=== PATIENT | male | born 1985 | race Caucasian/White ===

== ENCOUNTER 2016-11-17 19:56 | Emergency (ER) | payer BC ==
[2016-11-17] MEDS: AMOXICILLIN 500 MG TABLET PO ONE ×2 (20:20→20:42)
--- NOTE | 2016-11-17 20:21 | Emergency Department Record ---
History of Present Illness - General Chief complaint: ENT Stated complaint: SORE THROAT AND EARS,FEVER Time Seen by Provider: 11/17/16 20:14 Source: Patient, Family Mode of Arrival: Ambulatory - History of Present Illness Initial comments: 30 yo male presents with cough congestion and sore throat since Friday. He has bilateral ear pain as well. No NVD. No voice changes or difficulty swallowing. History of tonsillectomy as child. MD complaint: Ear pain, Sore throat, Other (cough) Onset/Timin -: Days(s) Location: R ear, L ear, Throat Severity scale (1-10): 6 Quality: Aching Consistency: Constant Improves with: None Worsens with: None Context- Ear: Recent illness Associated Symptoms: Cough - Related Data Previous Rx's Medication Instructions Recorded Amoxicillin [Amoxil] 500 mg PO TID #30 tab 11/17/16 Allergies Allergy/AdvReac Type Severity Reaction Status Date / Time metoclopramide HCl AdvReac ALTERED Verified 11/17/16 20:00 [From [facility]] MENTAL STATUS Travel Screening - Travel/Exposure Within Last 30 Days Have you traveled within the last 30 days?: Yes Location Detail:: and [place] - Travel/Exposure Within Last Year Have you traveled outside the [place] in the last year?: No - Additonal Travel Details Have you been exposed to anyone with a communicable illness?: No - Travel Symptoms Symptom Screening: None Review of Systems Constitutional: Denies: Chills, Fever, Malaise, Night sweats, Weakness Eyes: Denies: Eye discharge, Eye pain, Photophobia, Vision change ENT: Reports: Congestion, Ear pain, Throat pain Respiratory: Reports: Cough. Denies: Dyspnea, Hemoptysis, Stridor, Wheezes Cardiovascular: Denies: Chest pain, Palpitations, Syncope Endocrine: Denies: Fatigue Gastrointestinal: Denies: Abdominal pain, Diarrhea, Nausea, Vomiting Genitourinary: Denies: Dysuria, Frequency, Hematuria Musculoskeletal: Denies: Arthralgia, Back pain, Myalgia Skin: Denies: Bruising, Change in color, Rash Neurological: Denies: Confusion, Headache, Tingling, Tremors, Vertigo, Weakness Psychiatric: Denies: Anxiety Hematological/Lymphatic: Denies: Anemia, Blood Clots, Easy bleeding, Easy bruising, Swollen glands Past Medical History - SOCIAL HISTORY Smoking Status: Never smoker Alcohol Use: Heavy Alcohol Use Comment: couple beers nightly Drug Use: None - RESPIRATORY Hx Respiratory Disorders: Yes Hx Pneumonia: Yes - CARDIOVASCULAR Hx Cardio Disorders: No - NEURO Hx Neuro Disorders: No - GI Hx GI Disorders: No - Hx Genitourinary Disorders: No - ENDOCRINE Hx Endocrine Disorders: No - MUSCULOSKELETAL Hx Musculoskeletal Disorders: No - PSYCH Hx Psych Problems: No - HEMATOLOGY/ONCOLOGY Hx Hematology/Oncology Disorders: No Family Medical History Any Significant Family History?: No Physical Exam - General General Appearance: Alert, Oriented x3, Cooperative, No acute distress Limitations: No limitations - Head Head exam: Normal inspection - Eye Eye exam: Normal appearance, PERRL. negative: Conjunctival injection, Scleral icterus - ENT ENT exam: Mucous membranes moist, TM's normal bilaterally. negative: Normal exam, Normal orophraynx Ear exam: Normal external inspection. negative: External canal tenderness Nasal Exam: Discharge (clear). negative: Dried blood Mouth exam: Normal external inspection, Tongue normal Teeth exam: Normal inspection. negative: Dental caries Throat exam: Tonsillar erythema, Tonsillar exudate. negative: Tonsillomegaly, R peritonsillar mass, L peritonsillar mass - Neck Neck exam: Lymphadenopathy. negative: Meningismus, Tenderness, Thyromegaly - Respiratory Respiratory exam: Normal lung sounds bilaterally. negative: Accessory muscle use, Chest wall tenderness, Decreased breath sounds, Prolonged expiratory, Respiratory distress, Rhonchi, Stridor, Wheezes - Cardiovascular Cardiovascular Exam: Regular rate, Normal rhythm, Normal heart sounds - GI/Abdominal GI/Abdominal exam: Soft, Normal bowel sounds. negative: Tenderness - Rectal Rectal exam: Deferred - exam: Deferred - Extremities Extremities exam: Normal inspection, Full ROM, Normal capillary refill. negative: Tenderness - Back Back exam: Reports: Normal inspection, Full ROM. Denies: Muscle spasm, Rash noted, Tenderness - Neurological Neurological exam: Alert, Normal gait, Oriented X3 - Psychiatric Psychiatric exam: Normal affect, Normal mood - Skin Skin exam: Dry, Intact, Normal color, Warm Course Vital Signs 11/17/16 20:00 Temperature 99.5 F Pulse Rate 108 H Respiratory 20 Rate Blood Pressure 142/97 Pulse Ox 98 - Reevaluation(s) Reevaluation #1: The patient was seen and examined Amoxicillin provided in ED Strep screen sent for erythema with small amount of exudate 11/17/16 20:19 Reevaluation #2: Strep is positive 11/17/16 20:31 Disposition Disposition: Discharge Clinical Impression: Strep throat Sinusitis Qualifiers: Sinusitis location: frontal Chronicity: acute Recurrence: not specified as recurrent Qualified Code(s): J01.10 - Acute frontal sinusitis, unspecified Pharyngitis Qualifiers: Pharyngitis/tonsillitis etiology: unspecified etiology Qualified Code(s): J02.9 - Acute pharyngitis, unspecified Disposition: Home, Self-Care Condition: (1) Good Instructions: Strep Throat (ED) Additional Instructions: Return if worse, vomiting, fever, swelling or concerns Stay well hydrated Prescriptions: Amoxicillin [Amoxil] 500 mg PO TID #30 tab Forms: Patient Portal Access Time of Disposition: 20:21
== END 2016-11-17 20:46 | disposition home or self-care (01) ==
LOC: ER 19:56
DX: J02.0 Streptococcal pharyngitis (principal); J01.10 Acute frontal sinusitis, unspecified
CPT/HCPCS: 87880; 99282

== ENCOUNTER 2018-04-24 15:10 | Emergency (ER) | payer BC ==
--- NOTE | 2018-04-24 15:34 | Emergency Department Record ---
History of Present Illness - General Chief Complaint: Chest Pain Stated Complaint: CHEST DISCOMFOR ALL WEEK Time Seen by Provider: 04/24/18 15:16 Source: Patient Mode of Arrival: Ambulatory Limitations: No limitations - History of Present Illness Initial Comments: 32 yo male presents with a few episodes of brief chest discomfort over the last 10 days. The episodes seem to be noted in the upper chest. The occur somewhat randomly. Not exertion related or emotion related. He does not have any pain currently or today. He noted it seemed more noticeable with lifting but not to palpation. No shortness of breath. No diaphoresis. He denies palpitations. He uses minimal amounts of caffeine. He is not a smoker. No formal diagnosis of HTN, DM, elevated cholesterol. No family history of CAD or SCD in his immediate family. No history of any congenital diseases. He had labs for life insurance that he reports were in the highest rating area but he does not know specifics. No recent illness or injury. MD Complaint: Chest pain -: Days(s) (10) Onset: Other (Occurs randomly) Pain Radiation: None Severity: Mild Quality: Other (pressure) Consistency: Intermittent Improves With: Nothing Worsens With: Other (lifting) Anginal Symptoms: Other (None) Treatments Prior to Arrival: None - Related Data Home Medications Medication Instructions Recorded Confirmed Last Taken No Home Med [NO HOME MEDS] 04/24/18 04/24/18 Unknown Allergies Allergy/AdvReac Type Severity Reaction Status Date / Time metoclopramide HCl AdvReac ALTERED Verified 11/17/16 20:00 [From [facility]] MENTAL STATUS Review of Systems Constitutional: Denies: Chills, Fever, Malaise, Weakness Eyes: Denies: Eye discharge ENT: Denies: Congestion, Throat pain Respiratory: Denies: Cough, Dyspnea, Hemoptysis, Stridor, Wheezes Cardiovascular: Reports: Chest pain. Denies: Dyspnea on exertion, Edema, Palpitations, Syncope Endocrine: Denies: Fatigue, Polydipsia, Polyuria Gastrointestinal: Denies: Abdominal pain, Diarrhea, Nausea, Vomiting Genitourinary: Denies: Dysuria, Frequency, Hematuria Musculoskeletal: Denies: Arthralgia, Back pain, Joint swelling, Myalgia Skin: Denies: Bruising, Change in color, Rash Neurological: Denies: Headache, Numbness, Tremors, Vertigo, Weakness Psychiatric: Denies: Anxiety Hematological/Lymphatic: Denies: Easy bleeding, Easy bruising Past Medical History - SOCIAL HISTORY Smoking Status: Never smoker Alcohol Use Comment: couple beers nightly Drug Use: None - RESPIRATORY Hx Respiratory Disorders: Yes Hx Pneumonia: Yes - CARDIOVASCULAR Hx Cardio Disorders: No - NEURO Hx Neuro Disorders: No - GI Hx GI Disorders: No - Hx Genitourinary Disorders: No - ENDOCRINE Hx Endocrine Disorders: No - MUSCULOSKELETAL Hx Musculoskeletal Disorders: No - PSYCH Hx Psych Problems: No - HEMATOLOGY/ONCOLOGY Hx Hematology/Oncology Disorders: No Physical Exam - General General Appearance: Alert, Oriented x3, Cooperative, No acute distress Limitations: No limitations - Head Head exam: Normal inspection - Eye Eye exam: Normal appearance. negative: Conjunctival injection, Scleral icterus - ENT ENT exam: Normal exam Ear exam: Normal external inspection Nasal Exam: Normal inspection Mouth exam: Normal external inspection - Neck Neck exam: Normal inspection - Respiratory Respiratory exam: Normal lung sounds bilaterally. negative: Accessory muscle use, Chest wall tenderness, Decreased breath sounds, Prolonged expiratory, Rales , Respiratory distress, Rhonchi, Stridor, Wheezes - Cardiovascular Cardiovascular Exam: Regular rate, Normal rhythm, Normal heart sounds Peripheral Pulses: 2+: Radial (R), Radial (L) - GI/Abdominal GI/Abdominal exam: Soft. negative: Tenderness - Rectal Rectal exam: Deferred - exam: Deferred - Extremities Extremities exam: Normal inspection. negative: Joint swelling, Pedal edema, Tenderness - Back Back exam: Denies: CVA tenderness (R), CVA tenderness (L) - Neurological Neurological exam: Alert, Normal gait, Oriented X3 - Psychiatric Psychiatric exam: Normal affect, Normal mood - Skin Skin exam: Dry, Intact, Normal color, Warm Course - Reevaluation(s) Reevaluation #1: EKG NSR, rate is 80, intervals AL 115 otherwise normal, [place] normal, ST no acute changes. No old for comparison. 04/24/18 15:24 04/24/18 15:41 HEART SCORE is 0 PERC Negative 04/24/18 16:19 The labs are normal With a HEART SCORE of 0 DC with follow up recommendations The patient has symptoms not typical for ACS,PE He does not have any traditional risk factors DC with referrals to PCP and outpatient cardiology Medical Decision Making - Lab Data Result diagrams: 04/24/18 15:34 04/24/18 15:40 Disposition Disposition: Discharge Clinical Impression: Chest pain Disposition: Home, Self-Care Condition: (1) Good Instructions: Chest Pain (ED) Referrals: CHELITA MCKEON [MEDICAL DOCTOR] - JESSE LYNCH M.D. [MEDICAL DOCTOR] - [facility] [Provider Group] Forms: Patient Portal Access Time of Disposition: 16:21 Quality - Quality Measures Quality Measures: N/A - Blood Pressure Screening Does Patient Have Any of the Following: No Blood Pressure Classification: Pre-Hypertensive BP Reading Systolic Measurement: 145 Diastolic Measurement: 88 Screening for High Blood Pressure: < Pre-Hypertensive BP, F/U Documented > [ G8950] Pre-Hypertensive Follow-up Interventions: Referral to alternative/primary care provider.
[2018-04-24 15:52] LABS: BASO % 0.3 % (0-6); EOS % 1.2 % (0-6); GRAN % 59.6 % (47-80); HEMATOCRIT 40.8 % (42.0-52.0); HEMOGLOBIN 14.1 gm/dl (14.0-18.0); LYMPH % 32.1 % (16-45); MEAN CELL VOLUME 84.8 fl (81-97); MEAN CORPUSCULAR HEMOGLOBIN 29.3 pg (27-33); MEAN CORPUSCULAR HGB CONC 34.6 g/dl (32-36); MEAN PLATELET VOLUME 10.4 fl (7.4-10.4); MONO % 6.8 % (0-9); PLATELET COUNT 333 K/uL (130-400); RED BLOOD COUNT 4.81 M/uL (4.40-5.70); RED CELL DISTRIBUTION WIDTH 13.1 % (11.5-14.5)
[2018-04-24 16:02] LABS: BLOOD UREA NITROGEN 15 mg/dL (6-20); CREATININE 0.9 mg/dL (0.7-1.2); EST GLOMERULAR FILTRATION RATE > 60 mL/min
[2018-04-24 16:05] LABS: GLUCOSE,RANDOM 109 mg/dL (74-109)
--- NOTE | 2018-04-25 16:38 | RADIOLOGY REPORT ---
DATE: 04/24/2018 at 4:13 p.m. EXAM: TWO-VIEW, CHEST. HISTORY: Chest pain for nine days. TECHNIQUE: PA and lateral views. COMPARISON: Two-view, chest, 11/05/2016. FINDINGS: Heart size is within normal limits. No acute infiltrate identified. No pleural effusion or pneumothorax evident. IMPRESSION: THE CHEST APPEARS NEGATIVE. JOB NUMBER: [id number] MTDD
== END 2018-04-24 16:32 | disposition home or self-care (01) ==
LOC: ER 15:10
DX: R07.89 Other chest pain (principal)
CPT/HCPCS: 71046; 80048; 84484; 85025; 93005; 93010; 99282; 99283

== ENCOUNTER 2018-08-12 19:39 | Emergency (ER) | payer BC ==
--- NOTE | 2018-08-12 19:56 | Emergency Department Record ---
History of Present Illness - General Chief complaint: Male Urogenital Problem Stated complaint: GROIN PAIN Time Seen by Provider: 08/12/18 19:50 Source: Patient, Family Mode of Arrival: Ambulatory Limitations: No limitations - History of Present Illness Initial comments: 32 yo male presents with a pain that occurred twice today. The pain is currently gone. The pain occurred first this morning. The pain was sharp on the right flank, to the right groin and felt it in the right testicle. It lasted about 3 hours. The pain resolved. I return this afternoon but not as long. The pain has completely resolved. No fever, chills, hematuria, swelling , mass, rash. No history or urologic disease in the past. History of gall bladder removal. MD Complaint: Other Onset/Timin -: Days(s) (1) Location: Right flank Radiation: Suprapubic, Other Severity: Moderate Severity scale (1-10): 4 Quality: Sharp Consistency: Intermittent, Now resolved Improves with: Rest Other Reports: Denies other symptoms - Related Data Sexually active: Yes Allergies Allergy/AdvReac Type Severity Reaction Status Date / Time metoclopramide HCl AdvReac ALTERED Verified 08/12/18 19:54 [From [facility]] MENTAL STATUS Travel Screening - Travel/Exposure Within Last 30 Days Have you traveled within the last 30 days?: No - Travel Symptoms Symptom Screening: None Review of Systems Constitutional: Denies: Chills, Fever Eyes: Denies: Vision change ENT: Denies: Congestion, Ear pain, Throat pain Respiratory: Denies: Cough Cardiovascular: Denies: Chest pain Endocrine: Denies: Fatigue Gastrointestinal: Denies: Abdominal pain, Diarrhea, Nausea, Vomiting Genitourinary: Reports: Testicular pain (resolved). Denies: Discharge, Dysuria , Frequency, Hematuria, Incontinence, Testicular mass, Urgency Musculoskeletal: Reports: Back pain (right flank pain) Skin: Denies: Bruising, Change in color, Rash Neurological: Denies: Headache Psychiatric: Denies: Anxiety Hematological/Lymphatic: Denies: Easy bleeding, Easy bruising Past Medical History - SOCIAL HISTORY Smoking Status: Never smoker Alcohol Use Comment: couple beers nightly Drug Use: None - RESPIRATORY Hx Respiratory Disorders: Yes Hx Pneumonia: Yes - CARDIOVASCULAR Hx Cardio Disorders: No - NEURO Hx Neuro Disorders: No - GI Hx GI Disorders: No - Hx Genitourinary Disorders: No - ENDOCRINE Hx Endocrine Disorders: No - MUSCULOSKELETAL Hx Musculoskeletal Disorders: No - PSYCH Hx Psych Problems: No - HEMATOLOGY/ONCOLOGY Hx Hematology/Oncology Disorders: No Physical Exam - General General Appearance: Alert, Oriented x3, Cooperative, No acute distress Limitations: No limitations - Head Head exam: Atraumatic, Normal inspection - Eye Eye exam: Normal appearance, Conjunctival injection - ENT ENT exam: Normal exam Ear exam: Normal external inspection Nasal Exam: Normal inspection Mouth exam: Normal external inspection - Neck Neck exam: Normal inspection - Respiratory Respiratory exam: Normal lung sounds bilaterally. negative: Respiratory distress - Cardiovascular Cardiovascular Exam: Regular rate, Normal rhythm, Normal heart sounds - GI/Abdominal GI/Abdominal exam: Soft, Other (No tenderness of the inguinal area laying or standing, no hernia laying or standing). negative: Distended, Guarding, Hernia , Rebound, Rigid, Tenderness - Rectal Rectal exam: Deferred - exam: Circumcision, Normal inspection, Other (Normal cremasteric reflex bilateral, no testicle swelling bilateral, no testicle or epididymal tenderness or swell. ). negative: Scrotal swelling, Testicular tenderness, Urethral discharge - Extremities Extremities exam: Normal inspection - Back Back exam: Denies: CVA tenderness (R), CVA tenderness (L), Paraspinal tenderness , Tenderness - Neurological Neurological exam: Alert, Oriented X3 - Psychiatric Psychiatric exam: Normal affect, Normal mood. negative: Agitated, Anxious - Skin Skin exam: Dry, Intact, Normal color, Warm Course Vital Signs 08/12/18 19:44 Temperature 98.6 F Pulse Rate [ 90 Pulse Ox Probe] Respiratory 20 Rate Blood Pressure 133/93 [Left Arm] Pulse Ox 98 - Reevaluation(s) Reevaluation #1: The patient is completely asymptomatic at this time. The abdomen and testicle both have a normal examination With flank, groin pain radiating to the testicle (all resolved) I recommended UA initially. No signs of infection, torsion, mass, hernia. We did discuss if any pain in the testicle returns he would need to be seen in a hospital with 24/7 US that is not available at [facility] currently We discussed reviewing the UA initially and re-evaluating at that time 08/12/18 19:56 08/12/18 20:04 Blood noted in the urine. I offered CT for stone to further investigate his pain. He requests the CT 08/12/18 20:[address] 2-3 mm right sided non obstructing stones The patient remains asymptomatic We discussed home care, when to be seen if pain returns, and going to a larger ED in the night if the testicle becomes painful. Disposition Disposition: Discharge Clinical Impression: Acute flank pain, Renal colic on right side Disposition: Home, Self-Care Condition: (1) Good Instructions: Renal Colic (ED) Additional Instructions: Return to ED if your symptoms worsen or if you have any new concerns. Review the final Emergency Record and test results with your doctor on follow up Call the number provided for a new family doctor at [facility]. Referrals: CHELITA MCKEON [MEDICAL DOCTOR] - Forms: Patient Portal Access Time of Disposition: 20:40 Quality - Quality Measures Quality Measures: N/A - Blood Pressure Screening Does Patient Have Any of the Following: No Blood Pressure Classification: Hypertensive Reading Systolic Measurement: 133 Diastolic Measurement: 93 Screening for High Blood Pressure: < Pre-Hypertensive BP, F/U Documented > [ G8950] Pre-Hypertensive Follow-up Interventions: Referral to alternative/primary care provider.
[2018-08-12 20:00] LABS: URINE APPEARANCE CLEAR; URINE BILIRUBIN NEGATIVE (NEGATIVE); URINE BLOOD MODERATE (NEGATIVE); URINE COLOR YELLOW; URINE GLUCOSE (UA) NEGATIVE (NEGATIVE); URINE KETONE NEGATIVE (NEGATIVE); URINE LEUKOCYTE ESTERASE TRACE (NEGATIVE); URINE NITRITE NEGATIVE (NEGATIVE); URINE PROTEIN NEGATIVE (NEGATIVE); URINE UROBILINOGEN 0.2 E.U./dL (0.20 - 1.00)
[2018-08-12 20:08] LABS: URINE EPITHELIAL CELLS 0 - 2 (FEW); URINE WBC 0 - 2 (0-2/hpf)
== END 2018-08-12 20:48 | disposition home or self-care (01) ==
LOC: ER 19:39
DX: N20.0 Calculus of kidney (principal)
CPT/HCPCS: 74176; 81001; 99283

== ENCOUNTER 2019-03-31 20:48 | Emergency (ER) | payer BC ==
[2019-03-31 21:42] LABS: URINE APPEARANCE CLEAR; URINE BILIRUBIN NEGATIVE (NEGATIVE); URINE BLOOD NEGATIVE (NEGATIVE); URINE COLOR YELLOW; URINE GLUCOSE (UA) NEGATIVE (NEGATIVE); URINE KETONE NEGATIVE (NEGATIVE); URINE LEUKOCYTE ESTERASE NEGATIVE (NEGATIVE); URINE NITRITE NEGATIVE (NEGATIVE); URINE PROTEIN NEGATIVE (NEGATIVE); URINE UROBILINOGEN 0.2 E.U./dL (0.20 - 1.00)
--- NOTE | 2019-03-31 22:16 | Emergency Department Record ---
History of Present Illness - General Chief complaint: Male Urogenital Problem Stated complaint: CONSTANT FELLING HAVING TO GO TO BATHROOM Time Seen by Provider: 03/31/19 22:03 Source: Patient Mode of Arrival: Ambulatory Limitations: No limitations - History of Present Illness Initial comments: 33 yo male presents with a feeling of having to urinate frequently. No blood, no pus, fever, no abdominal pain. No back pain. He has had renal stones in the past. He is circumcised. No bowel changes. He has a history of renal stones. No current signs of renal stones. NO irritation or sores of the penis. MD Complaint: Dysuria Onset/Timin -: Week(s) Location: Penis Radiation: None Severity: Mild Quality: Other Consistency: Intermittent Improves with: None Worsens with: Urination (intermittently) Reports: Dysuria - Related Data Previous Rx's Medication Instructions Recorded Phenazopyridine HCl [Pyridium] 100 mg PO Q8H #6 tablet 03/31/19 Allergies Allergy/AdvReac Type Severity Reaction Status Date / Time metoclopramide HCl AdvReac ALTERED Verified 08/12/18 19:54 [From [facility]] MENTAL STATUS Travel Screening - Travel/Exposure Within Last 30 Days Have you traveled within the last 30 days?: No - Travel Symptoms Symptom Screening: None Review of Systems Constitutional: Denies: Chills, Fever, Malaise, Weakness Eyes: Denies: Eye discharge ENT: Denies: Congestion, Throat pain Respiratory: Denies: Cough Cardiovascular: Denies: Chest pain, Syncope Endocrine: Denies: Fatigue Gastrointestinal: Denies: Abdominal pain, Diarrhea, Nausea, Vomiting Genitourinary: Reports: Dysuria, Frequency, Urgency. Denies: Hematuria, Incontinence, Retention Musculoskeletal: Denies: Arthralgia, Back pain, Myalgia Skin: Denies: Bruising, Change in color, Rash Neurological: Denies: Headache Psychiatric: Denies: Anxiety Hematological/Lymphatic: Denies: Easy bleeding, Easy bruising Past Medical History - SOCIAL HISTORY Smoking Status: Former smoker - RESPIRATORY Hx Respiratory Disorders: Yes Hx Pneumonia: Yes - CARDIOVASCULAR Hx Cardio Disorders: No - NEURO Hx Neuro Disorders: No - GI Hx GI Disorders: No - Hx Genitourinary Disorders: Yes Hx Kidney Stones: Yes (09/2018) - ENDOCRINE Hx Endocrine Disorders: No - MUSCULOSKELETAL Hx Musculoskeletal Disorders: No - PSYCH Hx Psych Problems: No - HEMATOLOGY/ONCOLOGY Hx Hematology/Oncology Disorders: No Family Medical History Any Significant Family History?: Yes Hx Diabetes: Grandparents Hx Heart Disease: Grandparents Physical Exam - General General Appearance: Alert, Oriented x3, Cooperative, No acute distress Limitations: No limitations - Head Head exam: Atraumatic, Normal inspection - Eye Eye exam: Normal appearance - ENT ENT exam: Normal exam Ear exam: Normal external inspection Nasal Exam: Normal inspection Mouth exam: Normal external inspection - Neck Neck exam: Normal inspection - GI/Abdominal GI/Abdominal exam: Soft. negative: Distended, Guarding, Hernia, Rebound, Rigid, Tenderness - Rectal Rectal exam: Deferred - exam: Circumcision, Normal inspection, Other (Normal examination). negative: Scrotal swelling, Testicular tenderness - Extremities Extremities exam: Normal inspection. negative: Pedal edema - Back Back exam: Denies: CVA tenderness (R), CVA tenderness (L) - Neurological Neurological exam: Alert, Oriented X3 - Psychiatric Psychiatric exam: negative: Agitated, Anxious Course Vital Signs 03/31/19 21:46 Temperature 98.2 F Pulse Rate [ 86 Left] Respiratory 16 Rate Blood Pressure 156/110 [Left Arm] Pulse Ox 99 - Reevaluation(s) Reevaluation #1: The UA is normal 03/31/19 22:15 Medical Decision Making - Lab Data Lab Results 03/31/19 Range/Units 21:35 Urine Color Yellow Urine Appearance Clear Urine pH 6.0 (5.0-8.0) Ur Specific [place] <= 1.005 (1.002-1.030) Urine Protein Negative (NEGATIVE) Urine Glucose (UA) Negative (NEGATIVE) Urine Ketones Negative (NEGATIVE) Urine Blood Negative (NEGATIVE) Urine Nitrite Negative (NEGATIVE) Urine Bilirubin Negative (NEGATIVE) Urine Urobilinogen 0.2 (0.20 - 1.00) E.U./dL Ur Leukocyte Esterase Negative (NEGATIVE) Disposition Disposition: Discharge Clinical Impression: Dysuria Disposition: Home, Self-Care Condition: (1) Good Instructions: Dysuria (ED) Additional Instructions: Return to the ER for a recheck if worse, any new concerns or questions Take the prescriptions provided as directed Prescriptions: Phenazopyridine HCl [Pyridium] 100 mg PO Q8H #6 tablet Forms: Patient Portal Access Time of Disposition: 22:22 Quality - Quality Measures Quality Measures: N/A - Blood Pressure Screening Does Patient Have Any of the Following: No Blood Pressure Classification: Hypertensive Reading Systolic Measurement: 156 Diastolic Measurement: 110 Screening for High Blood Pressure: < Pre-Hypertensive BP, F/U Documented > [G8950] Pre-Hypertensive Follow-up Interventions: Referral to alternative/primary care provider.
== END 2019-03-31 22:30 | disposition home or self-care (01) ==
LOC: ER 20:48
DX: R30.0 Dysuria (principal); R35.0 Frequency of micturition; N48.89 Other specified disorders of penis; Z87.891 Personal history of nicotine dependence
CPT/HCPCS: 81003; 99283